=== PATIENT | male | born 1995 | race Caucasian/White ===

== ENCOUNTER 2016-10-01 13:03 | Emergency (ER) | payer SELFPAY ==
[~2016-10-01] VITALS: Ht 160 cm; Wt 57.8 kg
[2016-10-01 13:06] VITALS: BP 123/83
== END 2016-10-01 13:57 | disposition home or self-care (01) ==
LOC: ED 13:30
DX: S81.812D Laceration without foreign body, left lower leg, subsequent encounter (principal)
CPT/HCPCS: 99282